=== PATIENT | female | born 1990 | race Caucasian/White ===

== ENCOUNTER 2018-05-25 02:23 | Emergency (ER) | payer MEDICAID ==
--- NOTE | 2018-05-25 02:49 | ER Document Report ---
ED General - General Chief Complaint: Seizure Stated Complaint: POSSIBLE SEIZURE Time Seen by Provider: 05/25/18 02:40 Notes: Patient is a 28-year-old female who is brought in for seizures. She has a history of seizure disorder but apparently does not take anything for her seizures. She apparently had a few seizures at home and a months was called. Paramedics got there she was not seizing at that time but then started having a seizure in route here. They gave her 2.5 mg of Versed IV which stopped the seizure. She is now postictal and somnolent. She cannot answer any questions at this time. - Related Data Allergies/Adverse Reactions: codeine Allergy (Verified 05/25/18 02:32) latex Allergy (Verified 05/25/18 02:32) metoclopramide [From Reglan] Allergy (Verified 05/25/18 02:32) morphine Allergy (Verified 05/25/18 02:32) ondansetron [From Zofran] Allergy (Verified 05/25/18 02:32) Past Medical History - Social History Smoking Status: Unknown if Ever Smoked Frequency of alcohol use: unknown Drug Abuse: Other - unknown Family History: Reviewed & Not Pertinent Review of Systems - Review of Systems -: Yes ROS unobtainable due to patient's medical condition - Patient is postictal. Physical Exam - Vital signs Vitals: Pulse Ox 98 05/25/18 02:25 - Notes Notes: General Appearance: Currently somnolent but is arousable. She will open her eyes for brief period time look around. When I asked her questions she will mumble some answers but the mumbling is incoherent. Vitals: reviewed, See vital signs table. Head: no swelling or tenderness to the head Eyes: PERRL, EOMI, Conjuctiva clear Mouth: No decreasd moisture. No teeth. Throat: No tonsillar inflammation, No airway obstruction, No lymphadenopathy Neck: Supple, no neck tenderness, No thyromegaly Lungs: No wheezing, No rales, No rhonci, No accessory muscle use, good air exchange bilaterally. Heart: Normal rate, Regular rythm, No murmur, no rub Abdomen: Normal BS, soft, No rigidity, No abdominal tenderness, No guarding, no rebound, no abdominal masses, no organomegaly Extremities: good pulses in all extremities, no swelling or tenderness in the extremities, no edema. Skin: warm, dry, appropriate color, no rash Neuro: Somnolent. When I do arouse patient she does move her extremities on her own. When I went to open her eyelids she lifted her hand and push my hand away. Course - Re-evaluation Re-evalutation: 05/25/18 04:11 Patient still sleepy from the Versed but she is now able to wake up and tell me more information. She says that she does have history of seizure disorder. She does not see a doctor for this and therefore is not on any medications for her seizure. Her friend has arrived. He says he is unsure if she takes anything either. I will give her a of Keppra IV to help prevent further seizure activity. Patient's friend said that she had multiple seizures today. He says he has known her for several months and she will have 1 or 2 seizures but today she had approximately 5 seizures and that is why they called the ambulance. 05/25/18 05:19 She is awake alert answers all questions appropriately. I talked her length about the need to follow with a neurologist. She is visiting here from [place] with [place]. She says that she does not follow with a neurologist because there is multiple people in her family to have seizures" they know what to do". I informed her that she should be on seizure medications because otherwise she may have prolonged seizures at the cannot stop and this could be deadly. I have prescribed her Keppra. I informed her that she is welcome to return to ER anytime as were happy to reassess her any time and definitely she should return if she has recurrent seizures. Patient agrees with plan will be discharged home. Dictation of this chart was performed using voice recognition software; therefore, there may be some unintended grammatical errors. - Vital Signs Vital signs: Temp Pulse Resp BP Pulse Ox 20 113/68 97 05/25/18 02:30 05/25/18 02:30 05/25/18 02:30 - Laboratory Result Diagrams: 05/25/18 02:45 05/25/18 02:45 Laboratory results interpreted by me: 05/25/18 02:45 Potassium 3.3 L Discharge - Discharge Clinical Impression: Seizure Condition: Good Disposition: HOME, SELF-CARE Additional Instructions: Seizure, Known Epileptic You have had a seizure. Seizures may "break through" in an epileptic due to stress of infection or injury, a change in blood chemistry, or drug and alcohol use. Another common cause is failure to take medication as prescribed. Your doctor has evaluated your situation for the likely cause of this seizure. It is important that you follow his advice concerning any medication changes and follow-up care. Further testing of anti-seizure medication levels in your blood may be necessary. If you have a motor pool driver's license, it's important that you DO NOT DRIVE until given permission by your physician. This seizure must be reported to the motor pool driver 's license bureau. Call the doctor or return if seizures recur, or if new or unusual symptoms arise -- such as severe headache, confusion, excessive sleepiness, local weakness or numbness, neck stiffness, or fever. Please take the Keppra as prescribed to help prevent seizure. Please follow up with the neurologist, Dr. Dueñas. Please return to the ER if you have recurrent seizures. Prescriptions: Levetiracetam [Keppra 500 mg Tablet] 500 mg PO Q12 #60 tablet Referrals: FAWN DUEÑAS MD [NO LOCAL MD] - Follow up in 3-5 days
[2018-05-25 03:06] LABS: ABSOLUTE EOSINOPHILS # (AUTO) 0.1 10^3/uL (0.0-0.6); ABSOLUTE LYMPHOCYTES (AUTO) 2.4 10^3/uL (0.5-4.7); ABSOLUTE MONOCYTES (AUTO) 0.9 10^3/uL (0.1-1.4); ABSOLUTE NEUT (AUTO) 5.4 10^3/uL (1.7-8.2); BASOPHILS % (AUTO) 0.5 % (0-2); EOSINOPHILS % (AUTO) 1.1 % (0-6); HEMATOCRIT 38.4 % (36.0-47.0); HEMOGLOBIN 13.2 g/dL (12.0-15.5); LYMPHOCYTES % (AUTO) 27.2 % (13-45); MEAN CORPUSCULAR HEMOGLOBIN 29.6 pg (27.0-33.4); MEAN CORPUSCULAR HGB CONC 34.4 g/dL (32.0-36.0); MEAN CORPUSCULAR VOLUME 86 fl (80-97); PLATELET COUNT 241 10^3/uL (150-450); RED BLOOD COUNT 4.46 10^6/uL (3.72-5.28); RED CELL DISTRIBUTION WIDTH 13.6 % (11.5-14.0); SEGMENTED NEUTROPHILS % (AUTO) 61.2 % (42-78); TOTAL CELLS COUNTED % (AUTO) 100 %; WHITE BLOOD COUNT 8.8 10^3/uL (4.0-10.5)
[2018-05-25 03:18] LABS: ANION GAP 12 (5-19); BLOOD UREA NITROGEN 12 mg/dL (7-20); CALCIUM 9.5 mg/dL (8.4-10.2); CARBON DIOXIDE 25 mmol/L (22-30); CHLORIDE 105 mmol/L (98-107); GLUCOSE 98 mg/dL (75-110); POTASSIUM 3.3 mmol/L (3.6-5.0); SODIUM 141.8 mmol/L (137-145)
[2018-05-25] MEDS ORDERED: LEVETIRACETAM 500 MG/NACL-ISO 500 MG/100 ML RTUPB IV ONE (04:11)
[2018-05-25] MEDS ORDERED: POTASSIUM CHLORIDE 10 MEQ CAPSULE.ER PO ONE (05:10)
[2018-05-25 05:24] VITALS: BP 102/59
== END 2018-05-25 05:28 | disposition home or self-care (01) ==
LOC: ER 02:23
DX: G40.909 Epilepsy, unspecified, not intractable, without status epilepticus (principal); Z88.6 Allergy status to analgesic agent; Z91.040 Latex allergy status
CPT/HCPCS: 99284; 96374; 36415; 83735; 85025; 80048; J1953